=== PATIENT | female | born 1930 | race Caucasian/White ===

== ENCOUNTER 2016-05-02 09:20 | Emergency (ER) | payer OTHER ==
[2016-05-02 09:50] VITALS: BP 144/50
--- NOTE | 2016-05-02 09:56 | ED Physician Documentation ---
Upper Respiratory Symptoms - HISTORIAN Historian: patient - HPI Stated Complaint: headache Chief Complaint: Upper Respiratory Symptoms Onset: days ago (5) Associated Symptoms: earache, sinus pain, sinus drainage. denies: fever, chills Worsened by Deep Breath: No Further Comments: yes (85 yo female presents with sinus pressure/headache/ bilateral ear fullness. No nausea/vomiting. No visual disturbances. Was seen by PCP, was given Z-hilda which she says "helped some" but reports symptoms returned after completing) - ROS CONST/EYES: denies: weakness - PAST HX Lung Disease: none Allergies/Adverse Reactions: Allergies Allergy/AdvReac Type Severity Reaction Status Date / Time erythromycin base Allergy Verified 05/02/16 09:44 [Erythromycin Base] heparin Allergy Verified 05/02/16 09:44 Penicillins Allergy Verified 05/02/16 09:44 Sulfa (Sulfonamide Allergy Verified 05/02/16 09:44 Antibiotics) [Sulfa(Sulfonamide Antibiotics)] Home Medications: Ambulatory Orders Medication Instructions Recorded Aspirin [Nelida] 81 mg PO QD 05/20/12 Calcium Carbonate 650 mg PO DAILY 05/20/12 Carvedilol [Carvedilol] 25 mg PO DAILY 05/20/12 Levothyroxine Sodium [Levothroid] 75 mcg PO DAILY 05/20/12 Lisinopril [Lisinopril] 40 mg PO DAILY 05/20/12 Pravastatin Sodium [Pravachol] 80 mg PO DAILY 05/20/12 Ranitidine HCl 150 mg PO DAILY 05/20/12 amLODIPine BESYLATE [Amlodipine 5 mg PO DAILY 05/20/12 Besylate] Diphenoxylate HCl/Atropine 1 each PO QID PRN #15 tablet 08/24/12 [Lomotil] Clarithromycin [Biaxin] 500 mg PO BID #20 tablet 05/02/16 - SOCIAL HX Smoking History: non-smoker - FAMILY HX Family History: none - VITAL SIGNS Vital Signs: Vital Signs Temp Pulse Resp BP Pulse Ox 97.8 F 77 16 144/50 98 05/02/16 09:45 05/02/16 09:45 05/02/16 09:45 05/02/16 09:45 05/02/16 09:45 - REVIEWED ASSESSMENTS Nursing Assessment Reviewed: Yes Vitals Reviewed: Yes Upper Respiratory Symptoms - EXAM General Appearance: no acute distress EENT: eyes nml inspection, nml ENT inspection, lids & conjunct. nml, PERRL, pain over sinuses, frontal Neck: normal inspection Respiratory: no resp. distress, breath sounds nml, no pain on inspiration Abdomen: non-tender, no organomegaly Skin: color nml, no rash Extremities: non-tender Neuro/Psych: oriented x3 Discharge Clincal Impression: Acute sinusitis Qualifiers: Sinusitis location: frontal Recurrence: non-recurrent Qualified Code(s): J01.10 - Acute frontal sinusitis, unspecified Additional Instructions: Take Biaxin twice daily as prescribed Use over the counter cough/cold remedies Hydrate Follow up with PCP in 1 week if no better Home Medications: Ambulatory Orders Aspirin [Nelida] 81 mg PO QD 05/20/12 Calcium Carbonate 650 mg PO DAILY 05/20/12 Carvedilol [Carvedilol] 25 mg PO DAILY 05/20/12 Levothyroxine Sodium [Levothroid] 75 mcg PO DAILY 05/20/12 Lisinopril [Lisinopril] 40 mg PO DAILY 05/20/12 Pravastatin Sodium [Pravachol] 80 mg PO DAILY 05/20/12 Ranitidine HCl 150 mg PO DAILY 05/20/12 amLODIPine BESYLATE [Amlodipine Besylate] 5 mg PO DAILY 05/20/12 Diphenoxylate HCl/Atropine [Lomotil] 1 each PO QID PRN #15 tablet 08/24/12 Clarithromycin [Biaxin] 500 mg PO BID #20 tablet 05/02/16 Condition: Good Disposition: 01 HOME, SELF-CARE Decision to Admit: NO Decision Time: 09:57
== END 2016-05-02 10:08 | disposition home or self-care (01) ==
LOC: ED 09:20
DX: J01.10 Acute frontal sinusitis, unspecified (principal)
CPT/HCPCS: 99283

== ENCOUNTER 2016-05-03 10:33 | Outpatient (CLI) | payer OTHER ==
[2016-05-02 09:50] VITALS: BP 144/50
--- NOTE | 2016-05-03 12:59 | Diagnostic Imaging Report ---
[facility] [address] [facility].[address] [id number] Report Submission Date: May 03, 2016 12:57:08 PM BRIM PLATER Patient Study Name: BILL GONZALEZ Date: May 03, 2016 10:47:21 AM BRIM PLATER Modality Type: US Gender: F Description: DPLX SCN XTRCRAN ART CMP BRITT : 30 Institution: [facility] Physician VERO BLACK Ultrasound carotid Doppler HISTORY: Carotid stenosis, coronary artery disease, hypertension, hyperlipidemia FINDINGS: Spectral Doppler sonography of the carotid and vertebral arteries is performed. On the right there is a large amount of hyperechoic plaque in the carotid bulb and origin of the internal carotid artery. Antegrade right carotid and vertebral artery flow is observed. Doppler waveforms are normal in the right carotid and vertebral arteries. Spectral broadening is present in the proximal right external carotid artery. On the left there is minimal hyperechoic plaque in the common carotid artery and mild to moderate hyperechoic plaque in the carotid bulb and to a lesser extent the origin of the internal carotid artery. Antegrade left carotid and vertebral artery flow is observed with normal Doppler waveforms. Peak systolic velocities in the external carotid arteries are 153 centimeters/ second right and 158 left. Peak systolic velocities in the internal carotid arteries are 82 centimeters/second right and 91 left. Internal to common carotid artery ratios are 1.1 right and 1.4 left. IMPRESSION: Probably bilateral external carotid artery stenosis. Using NASCET criteria, there are patent internal carotid arteries without hemodynamically significant stenosis. Antegrade vertebral artery flow. Electronically signed on May 03, 2016 12:57:08 PM BRIM PLATER by: Vero GRIFFITH
== END 2016-05-03 10:34 ==
LOC: CARD 10:33
PROVIDERS: ATTEND Internal Medicine Cardiovascular Disease
DX: I25.10 Atherosclerotic heart disease of native coronary artery without angina pectoris (principal)
CPT/HCPCS: 93880; G0463

== ENCOUNTER 2016-09-25 09:58 | Emergency (ER) | payer OTHER ==
[2016-09-25 11:03] VITALS: BP 138/68
--- NOTE | 2016-09-25 11:03 | ED Physician Documentation ---
Lower Extremity Problem - HISTORIAN Historian: patient - HPI Stated Complaint: Left Hip Pain Chief Complaint: Lower Extremity Problem Additional Information: bilat hip pain and pelvis pain first rt hip w/ sciata now after some lifting lt hip pain w/rad to lt groion---no spec injuries Onset: days ago (int past few weeks) Timing: still present, worse since (few days ago after moving--walks w/ sig pain -some limping) Duration: intermittent episodes Severity: moderate Quality: pain, tenderness. denies: swelling, numbness Exacerbated By: walking, movement Relieved By: rest, positioning Associated Symptoms: denies: chest pain, shortness of breath, rapid heart rate - ROS CONST: no problems MS/SKIN/LYMPH: joint pain, leg pain, back pain. denies: ankle swelling CVS/RESP: denies: chest pain GI/: none NERUO/PSYCH: difficulty walking. 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 on synthroid) Other History: other (heart murmur-mild) Surgeries/Procedures: other (breast appy 2 stents) Allergies/Adverse Reactions: Allergies Allergy/AdvReac Type Severity Reaction Status Date / Time erythromycin base Allergy Verified 09/25/16 10:11 [Erythromycin Base] heparin Allergy Verified 09/25/16 10:11 Penicillins Allergy Verified 09/25/16 10:11 Sulfa (Sulfonamide Allergy Verified 09/25/16 10:11 Antibiotics) [Sulfa(Sulfonamide Antibiotics)] Home Medications: Ambulatory Orders Medication Instructions Recorded Aspirin [Nelida] 81 mg PO QD 05/20/12 Calcium Carbonate 650 mg PO DAILY 05/20/12 Carvedilol [Carvedilol] 25 mg PO DAILY 05/20/12 Levothyroxine Sodium [Levothroid] 75 mcg PO DAILY 05/20/12 Lisinopril [Lisinopril] 40 mg PO DAILY 05/20/12 Pravastatin Sodium [Pravachol] 80 mg PO DAILY 05/20/12 Ranitidine HCl 150 mg PO DAILY 05/20/12 amLODIPine BESYLATE [Amlodipine 5 mg PO DAILY 05/20/12 Besylate] - SOCIAL HX Smoking History: non-smoker Alcohol Use: none Drug Use: none - FAMILY HX Family History: no significant history - VITAL SIGNS Vital Signs: Vital Signs Temp Pulse Resp BP Pulse Ox 97 F L 68 18 153/56 98 09/25/16 09:58 09/25/16 09:58 09/25/16 09:58 09/25/16 09:58 09/25/16 09:58 - REVIEWED ASSESSMENTS Nursing Assessment Reviewed: Yes Vitals Reviewed: Yes ED Results Lab/Radiology - Radiology Radiology Impressions: sig djd no fx seen has good bony structure isaak for age-no lytic lesions seen. - Orders Orders: ED Orders Category Date Time Status BILAT HIPS 2V (W/PEL IF DONE) [RAD] Stat Exams 09/25/16 Ordered Lower Extremity Problem - EXAM General Appearance: moderate distress Neuro/Tendon: normal sensation, normal motor functions, responds to pain, other (palp tenderness lt hip and pelvic stress rt hip minimal) RESPIRATORY: no resp distress, chest non-tender, breath sounds normal CVS: reg rate & rhythm, heart sounds normal ( slight sys murmur) VASCULAR: no vascular compromise NEURO/PSYCH: oriented X3, motor nml, sensation nml, mood/affect nml SKIN: warm/dry, normal color. No: cyanosis, diaphoresis, jaundice BACK: CVA tenderness (R), CVA tenderness (L) (lumbar area) Discharge Clincal Impression: Sciatica associated with disorder of lumbar spine, DJD (degenerative joint disease) Referrals: Eduardo Mujica MD [Primary Care Provider] - 2 Days Home Medications: Ambulatory Orders Aspirin [Nelida] 81 mg PO QD 05/20/12 Calcium Carbonate 650 mg PO DAILY 05/20/12 Carvedilol [Carvedilol] 25 mg PO DAILY 05/20/12 Levothyroxine Sodium [Levothroid] 75 mcg PO DAILY 05/20/12 Lisinopril [Lisinopril] 40 mg PO DAILY 05/20/12 Pravastatin Sodium [Pravachol] 80 mg PO DAILY 05/20/12 Ranitidine HCl 150 mg PO DAILY 05/20/12 amLODIPine BESYLATE [Amlodipine Besylate] 5 mg PO DAILY 05/20/12 Comments: home Condition: Good Disposition: 01 HOME, SELF-CARE Decision to Admit: NO (n) Decision Time: 11:02
--- NOTE | 2016-09-25 13:12 | Diagnostic Imaging Report ---
RICKY UMANZOR~ [facility] [address] [facility] [address] [place] [address]. [id number] ~ ~ ~ ~ Report Submission Date: Sep 25, 2016 11:23:51 AM CDT Patient ~ Study Name: BILL GONZALEZ ~ Date: Sep 25, 2016 10:25:17 AM CDT ~ Modality Type: CR Gender: F ~ Description: PELVIS : 30 ~ Institution: [facility] Physician: RICKY UMANZOR ~ ~ ~ ~ Pelvis AP view with bilateral 2 view hip. History: Bilateral hip pain for 1 month after moving and picking up boxes Findings: The osseous structures are intact without acute fracture. The proximal femurs are intact. The femoral heads are in appropriate position with mild narrowing of the hip joint spaces. There is also mild degenerative in the lower lumbar spine noted. The sacroiliac joints are normal. Pelvic phleboliths are seen. Impression: 1. No acute osseous abnormality. 2. Bilateral hip joint space narrowing ~ Electronically signed on Sep 25, 2016 11:23:51 AM CDT by: Onofre Rosen The following text is a previous version of the current report for this study. Pelvis AP view with right hip. History: Bilateral hip pain for 1 month after moving and picking up boxes Findings: The osseous structures are intact without acute fracture. The proximal femurs are intact. The femoral heads are in appropriate position with mild narrowing of the hip joint spaces. There is also mild degenerative in the lower lumbar spine noted. The sacroiliac joints are normal. Pelvic phleboliths are seen. Impression: 1. No acute osseous abnormality. 2. Bilateral hip joint space narrowing Prior version electronically signed by Onofre Rosen on September 25, 2016 10:50:01 AM CDT [facility]
== END 2016-09-25 11:02 | disposition home or self-care (01) ==
LOC: ED 09:58
DX: M54.30 Sciatica, unspecified side (principal); M19.90 Unspecified osteoarthritis, unspecified site; M25.552 Pain in left hip
CPT/HCPCS: 73521; 99283

== ENCOUNTER 2016-09-26 22:34 | Emergency (ER) | payer OTHER ==
[2016-09-26] MEDS ORDERED: MECLIZINE HCL 25 MG TABLET PO ONE (22:52)
--- NOTE | 2016-09-26 23:05 | ED Physician Documentation ---
General Adult - HISTORIAN Historian: patient - HPI Stated Complaint: EARPRESSURE Chief Complaint: General Adult Onset: hours Further Comments: yes (85 year old female patient presents with complaints of "roaring" in ears and mild dizziness. States it started this afternoon. Patient states her sciatica resolved today.) - ROS CONST: no problems EYES/ENT: none CVS/RESP: none GI/: none MS/SKIN/LYMPH: none NEURO/PSYCH: denies: headache - PAST HX Past History: hypertension, other (HLD, Breast CA 1994) Surgeries/Procedures: cardiac stent, other (appendectomy) Allergies/Adverse Reactions: Allergies Allergy/AdvReac Type Severity Reaction Status Date / Time erythromycin base Allergy Verified 09/26/16 22:53 [Erythromycin Base] heparin Allergy Verified 09/26/16 22:53 Penicillins Allergy Verified 09/26/16 22:53 Sulfa (Sulfonamide Allergy Verified 09/26/16 22:53 Antibiotics) [Sulfa(Sulfonamide Antibiotics)] Home Medications: Ambulatory Orders Medication Instructions Recorded Aspirin [Nelida] 81 mg PO QD 05/20/12 Calcium Carbonate 650 mg PO DAILY 05/20/12 Carvedilol [Carvedilol] 25 mg PO DAILY 05/20/12 Levothyroxine Sodium [Levothroid] 75 mcg PO DAILY 05/20/12 Lisinopril [Lisinopril] 40 mg PO DAILY 05/20/12 Pravastatin Sodium [Pravachol] 80 mg PO DAILY 05/20/12 Ranitidine HCl 150 mg PO DAILY 05/20/12 amLODIPine BESYLATE [Amlodipine 5 mg PO DAILY 05/20/12 Besylate] - SOCIAL HX Smoking History: non-smoker - FAMILY HX Family History: No - VITAL SIGNS Vital Signs: Vital Signs Temp Pulse Resp BP Pulse Ox 97.6 F 75 20 144/58 100 09/26/16 22:45 09/26/16 22:45 09/26/16 22:45 09/26/16 22:45 09/26/16 22:45 - REVIEWED ASSESSMENTS Nursing Assessment Reviewed: Yes Vitals Reviewed: Yes ED Results Lab/Radiology - Orders Orders: ED Orders Category Date Time Status Meclizine HCl [Antivert] Med 09/26/16 22:52 Once 25 mg PO NOW ONE General Adult Physical Exam - PHYSICAL EXAM GENERAL APPEARANCE: anxious EENT: eye inspection normal, ENT inspection normal, pharynx normal, no signs of dehydration, FAYE, no nystagmus, other (right TM with serous effusion) RESPIRATORY: no resp distress, chest non-tender, breath sounds normal CVS: reg rate & rhythm, equal pulses, no murmur, no gallop, PMI nml, no JVD, no friction rub, murmur (mitral regurg 5/6) SKIN: normal color, warm/dry, NR, INT, PAL, DR NEURO: oriented X3, CN's nml as tested, motor nml, sensation nml, mood/affect nml Discharge Clincal Impression: Light-headed feeling, ears roaring Referrals: Eduardo Mujica MD [Primary Care Provider] - 2 Days Additional Instructions: Try an over the counter decongestant tomorrow if your symptoms have not resolved. Home Medications: Ambulatory Orders Aspirin [Nelida] 81 mg PO QD 05/20/12 Calcium Carbonate 650 mg PO DAILY 05/20/12 Carvedilol [Carvedilol] 25 mg PO DAILY 05/20/12 Levothyroxine Sodium [Levothroid] 75 mcg PO DAILY 05/20/12 Lisinopril [Lisinopril] 40 mg PO DAILY 05/20/12 Pravastatin Sodium [Pravachol] 80 mg PO DAILY 05/20/12 Ranitidine HCl 150 mg PO DAILY 05/20/12 amLODIPine BESYLATE [Amlodipine Besylate] 5 mg PO DAILY 05/20/12 Condition: Good Disposition: 01 HOME, SELF-CARE Decision to Admit: NO Decision Time: 23:04
[2016-09-26 23:15] VITALS: BP 138/68
== END 2016-09-26 23:15 | disposition home or self-care (01) ==
LOC: ED 22:34
DX: R42 Dizziness and giddiness (principal)
CPT/HCPCS: 99282; 99283

== ENCOUNTER 2017-04-08 09:18 | Emergency (ER) | payer OTHER ==
--- NOTE | 2017-04-08 09:30 | ED Physician Documentation ---
General Adult - HISTORIAN Historian: patient - HPI Chief Complaint: General Adult Additional Information: 10 day history of cough that has been productive of some yellowish/green phegm. Has developed some sinus congesion and pressure. Having some bloody nasal drainage. No wheezing noted. No fever or chills noted. Onset: days ago (10 days ), other Timing: still present, worse Severity: moderate Further Comments: no - ROS CONST: no problems. denies: fever, chills EYES/ENT: none CVS/RESP: cough. denies: chest pain GI/: denies: abdominal pain, problems urinating, vomiting, nausea, diarrhea MS/SKIN/LYMPH: denies: calf pain NEURO/PSYCH: denies: headache - PAST HX Past History: hypertension Surgeries/Procedures: other (breast ancer lumpectomy) Allergies/Adverse Reactions: Allergies Allergy/AdvReac Type Severity Reaction Status Date / Time erythromycin base Allergy Verified 04/08/17 09:28 [Erythromycin Base] heparin Allergy Verified 04/08/17 09:28 Penicillins Allergy Verified 04/08/17 09:28 Sulfa (Sulfonamide Allergy Verified 04/08/17 09:28 Antibiotics) [Sulfa(Sulfonamide Antibiotics)] Home Medications: Ambulatory Orders Medication Instructions Recorded Aspirin [Nelida] 81 mg PO QD 05/20/12 Calcium Carbonate 650 mg PO DAILY 05/20/12 Carvedilol [Carvedilol] 25 mg PO DAILY 05/20/12 Levothyroxine Sodium [Levothroid] 75 mcg PO DAILY 05/20/12 Lisinopril [Lisinopril] 40 mg PO DAILY 05/20/12 Pravastatin Sodium [Pravachol] 80 mg PO DAILY 05/20/12 Ranitidine HCl 150 mg PO DAILY 05/20/12 amLODIPine BESYLATE [Amlodipine 5 mg PO DAILY 05/20/12 Besylate] Levofloxacin [Levaquin] 500 mg PO D #7 tablet 04/08/17 - SOCIAL HX Smoking History: non-smoker Alcohol Use: none Drug Use: none - FAMILY HX Family History: Yes - VITAL SIGNS Vital Signs: Vital Signs Temp Pulse Resp BP Pulse Ox 138/68 09/26/16 23:15 General Adult Physical Exam - PHYSICAL EXAM GENERAL APPEARANCE: no distress EENT: eye inspection normal, pharyngeal erythema (mild) NECK: normal inspection, supple RESPIRATORY: no resp distress, rhonchi (RLL) CVS: reg rate & rhythm, heart sounds normal, murmur (2/6 systolic) ABDOMEN: soft SKIN: warm/dry, normal color NEURO: mood/affect nml, cognition normal Discharge Clincal Impression: Bronchitis Sinusitis Qualifiers: Sinusitis location: frontal Chronicity: acute Recurrence: non-recurrent Qualified Code(s): J01.10 - Acute frontal sinusitis, unspecified Prescriptions: Levofloxacin [Levaquin] 500 mg PO D #7 tablet Referrals: Adonay Kc MD [Primary Care Provider] - 2 Days Additional Instructions: Drink a lot of fluids. Take Levaquin as directed. Watch for side effects as indicated. Take Mucinex 600mg twice a day as needed for congestion. If no improvement then follow-up with your primary care provider or return to the ED. Condition: Stable Disposition: 01 HOME, SELF-CARE Decision to Admit: NO Date of Decison to Admit: 04/08/17 Decision Time: 09:42
[2017-04-08 09:55] VITALS: BP 115/58
== END 2017-04-08 09:54 | disposition home or self-care (01) ==
LOC: ED 09:18
DX: J40 Bronchitis, not specified as acute or chronic (principal); J01.10 Acute frontal sinusitis, unspecified
CPT/HCPCS: 99283

== ENCOUNTER 2017-04-13 18:54 | Emergency (ER) | payer OTHER ==
--- NOTE | 2017-04-13 19:17 | ED Physician Documentation ---
Headache - HISTORIAN Historian: patient - HPI Chief Complaint: Headache Additional Information: Patient has been having some chest congestion. It seems to be doing better. But when she coughs she is getting a headache to the frontal area, pain lasts for about [address] then [address]. Was prescribed some Levaquin but she has refused to take it. Has been having some green bloody nasal drainage from the noes. Some sinus pressure noted. Severity: mild Exacerbated By: other (cough). denies: light, noise, movement Further Comments: no - ROS NEURO/PSYCH: denies: confusion, anxiety EYES/ENT: sinus pain, drainage. denies: sore throat, difficulty swallowing CVS/RESP: cough. denies: chest pain, shortness of breath GI/: denies: abdominal pain - PAST HX Medical History: hypertension Surgical History: other (lumpectomy) Allergies/Adverse Reactions: Allergies Allergy/AdvReac Type Severity Reaction Status Date / Time erythromycin base Allergy Verified 04/08/17 09:28 [Erythromycin Base] heparin Allergy Verified 04/08/17 09:28 Penicillins Allergy Verified 04/08/17 09:28 Sulfa (Sulfonamide Allergy Verified 04/08/17 09:28 Antibiotics) [Sulfa(Sulfonamide Antibiotics)] Home Medications: Ambulatory Orders Medication Instructions Recorded Aspirin [Nelida] 81 mg PO QD 05/20/12 Calcium Carbonate 650 mg PO DAILY 05/20/12 Carvedilol [Carvedilol] 25 mg PO DAILY 05/20/12 Levothyroxine Sodium [Levothroid] 75 mcg PO DAILY 05/20/12 Lisinopril [Lisinopril] 40 mg PO DAILY 05/20/12 Pravastatin Sodium [Pravachol] 80 mg PO DAILY 05/20/12 Ranitidine HCl 150 mg PO DAILY 05/20/12 amLODIPine BESYLATE [Amlodipine 5 mg PO DAILY 05/20/12 Besylate] Levofloxacin [Levaquin] 500 mg PO D #7 tablet 04/08/17 - SOCIAL HX Smoking History: non-smoker Alcohol Use: none Drug Use: none - Family HX Family History: none - VITAL SIGNS Vital Signs: Vital Signs Temp Pulse Resp BP Pulse Ox 115/58 04/08/17 09:54 - REVIEWED ASSESSMENTS Nursing Assessment Reviewed: Yes Vitals Reviewed: Yes Headache Physical Exam - EXAM General Appearance: no acute distress, alert EENT: no facial swelling, eyes nml inspection, PERRL, pain over sinuses (left frontal) Neck: normal inspection, supple Respiratory: no resp distress, chest non-tender, breath sounds normal. No: wheezes, rales, rhonchi CVS: reg. rate & rhythm, heart sounds nml. No: murmur Abdomen: non-tender, no organomegaly, nml bowel sounds Skin: color nml, no rash Extremitites: non-tender - NEURO/PSYCH Higher Functions: alert, oriented x3, nml speech Cranial: nml as tested, no evidence of acute CVA Cerebellar: nml as tested Sensorimotor: motor nml, sensation nml. denies: weakness, aphasia, receptive Discharge Clincal Impression: Bronchitis, Sinus pain Referrals: Adonay Kc MD [Primary Care Provider] - 2 Days Additional Instructions: Start taking some Tylenol three times a day. Use some saline nasal rinses. Continue with mucinex. Condition: Stable Disposition: 01 HOME, SELF-CARE Decision to Admit: NO Date of Decison to Admit: 04/13/17 Decision Time: 19:32
[2017-04-13 19:19] VITALS: BP 132/54
== END 2017-04-13 19:41 | disposition home or self-care (01) ==
LOC: ED 18:54
DX: J32.9 Chronic sinusitis, unspecified (principal); J40 Bronchitis, not specified as acute or chronic
CPT/HCPCS: 99282; 99283

== ENCOUNTER 2017-05-05 08:08 | Emergency (ER) | payer OTHER ==
--- NOTE | 2017-05-05 08:15 | ED Physician Documentation ---
General Adult - HISTORIAN Historian: patient - HPI Stated Complaint: influenza Chief Complaint: Upper Respiratory Symptoms Onset: days ago (4) Timing: still present Severity: mild Further Comments: yes (States on Monday she was told she had Influenza A at her PCP office. She states she continues to feel "so bad" meaning fatigue, cough , and nausea . She states she is drinking normally.) Last known Well Code/Unknown Code: Unknown - ROS CONST: fever (resolved now ), recent illness, weakness EYES/ENT: nasal drainage, nasal congestion CVS/RESP: cough GI/: nausea MS/SKIN/LYMPH: none NEURO/PSYCH: headache - PAST HX Past History: other (HTN, hypothyroidism, hyperlipidemia GERD ) Surgeries/Procedures: other Immunizations: UTD Allergies/Adverse Reactions: Allergies Allergy/AdvReac Type Severity Reaction Status Date / Time erythromycin base Allergy Verified 05/05/17 08:34 [Erythromycin Base] heparin Allergy Verified 05/05/17 08:34 Penicillins Allergy Verified 05/05/17 08:34 Sulfa (Sulfonamide Allergy Verified 05/05/17 08:34 Antibiotics) [Sulfa(Sulfonamide Antibiotics)] Home Medications: Ambulatory Orders Medication Instructions Recorded Aspirin [Nelida] 81 mg PO QD 05/20/12 Calcium Carbonate 650 mg PO DAILY 05/20/12 Carvedilol [Carvedilol] 25 mg PO DAILY 05/20/12 Levothyroxine Sodium [Levothroid] 75 mcg PO DAILY 05/20/12 Lisinopril [Lisinopril] 40 mg PO DAILY 05/20/12 Pravastatin Sodium [Pravachol] 80 mg PO DAILY 05/20/12 Ranitidine HCl 150 mg PO DAILY 05/20/12 amLODIPine BESYLATE [Amlodipine 5 mg PO DAILY 05/20/12 Besylate] Levofloxacin [Levaquin] 500 mg PO D #7 tablet 05/05/17 Ondansetron HCl Rapdis [Zofran Odt] 4 mg PO Q8 PRN #20 tab 05/05/17 Oseltamivir Phosphate [Tamiflu] 75 mg PO DAILY 05/05/17 - SOCIAL HX Smoking History: non-smoker Alcohol Use: none Drug Use: none - FAMILY HX Family History: No - VITAL SIGNS Vital Signs: Vital Signs Temp Pulse Resp BP Pulse Ox 151/62 04/30/17 15:26 - REVIEWED ASSESSMENTS Nursing Assessment Reviewed: Yes Vitals Reviewed: Yes Progress - Progress Progress: 1010: resting quietly in room with spouse DG ED Results Lab/Radiology - Radiology Radiology Impressions: Examination: PA and lateral chest. History: Evaluate lung paul. Comparison exam: None available for direct review. Findings: PA lateral chest demonstrate a normal cardiac and mediastinal silhouette. Tortuous aorta with vascular calcifications involving the aortic arch. Elevation of the right hemidiaphragm. Right hilar fullness and apical parenchymal infiltrates. No left hemithorax infiltrate. No blunting of the costophrenic margins. Osseous structures are appropriate for age. Impression: Right hilar and apical infiltrates. No effusion Electronically signed on May 05, 2017 9:18:46 AM COMMERCIAL [employer]ING TE[employer]ER by: Devonte Strong General Adult Physical Exam - PHYSICAL EXAM GENERAL APPEARANCE: no distress EENT: eye inspection normal RESPIRATORY: no resp distress, chest non-tender, breath sounds normal CVS: reg rate & rhythm, heart sounds normal, equal pulses ABDOMEN: soft, normal bowel sounds BACK: normal inspection SKIN: warm/dry, normal color EXTREMITIES: non-tender NEURO: oriented X3, CN's nml as tested Discharge Clincal Impression: Influenza Pneumonia Qualifiers: Pneumonia type: due to unspecified organism Laterality: unspecified laterality Lung location: unspecified part of lung Qualified Code(s): J18.9 - Pneumonia, unspecified organism Prescriptions: Levofloxacin [Levaquin] 500 mg PO D #7 tablet Ondansetron HCl Rapdis [Zofran Odt] 4 mg PO Q8 PRN #20 tab PRN Reason: Nausea / Vomiting Referrals: Adonay Kc MD [Primary Care Provider] - 2 Days Comments: Increase fluids Rest OTC meds for symptom relief Zofran 4 mg every 8 hours as needed for nausea Levaquin 500 mg daily x7 Continue tamiflu Follow up with PCP Monday or Monday Return to ER for any concerning symptoms Condition: Stable Disposition: 01 HOME, SELF-CARE Decision to Admit: NO Date of Decison to Admit: 05/05/17 Decision Time: 10:25
[2017-05-05 08:51] LABS: MEAN CORPUSCULAR VOLUME 87.8 fl (80.0-100.0)
[2017-05-05 09:09] LABS: MONOCYTES % 11 % (0-11); SEGMENTED NEUTROPHILS % 60 % (39-79)
[2017-05-05 09:10] LABS: eGFR (African) > 60; eGFR (Non-African) > 60
[2017-05-05] MEDS ORDERED: 0.9 % SODIUM CHLORIDE 1,000 ML IV ONE (09:31)
[2017-05-05 10:34] VITALS: BP 115/58
--- NOTE | 2017-05-05 12:41 | Diagnostic Imaging Report ---
PRASAD MOORE [facility] [place] [facility] [id number] [facility] [address] [place], [place]. [address] Report Submission Date: May 05, 2017 9:18:46 AM HEALTH CENTER ASSOCIATE Patient Study Name: BILL GONZALEZ Date: May 05, 2017 8:51:05 AM HEALTH CENTER ASSOCIATE Modality Type: CR Gender: F Description: CHEST : 30 Institution: [facility] Physician: PRASAD MOORE Examination: PA and lateral chest. History: Evaluate lung paul. Comparison exam: None available for direct review. Findings: PA lateral chest demonstrate a normal cardiac and mediastinal silhouette. Tortuous aorta with vascular calcifications involving the aortic arch. Elevation of the right hemidiaphragm. Right hilar fullness and apical parenchymal infiltrates. No left hemithorax infiltrate. No blunting of the costophrenic margins. Osseous structures are appropriate for age. Impression: Right hilar and apical infiltrates. No effusion Electronically signed on May 05, 2017 9:18:46 AM HEALTH CENTER ASSOCIATE by: Devonte GRIFFITH
== END 2017-05-05 10:32 | disposition home or self-care (01) ==
LOC: ED 08:08
DX: J09.X1 Influenza due to identified novel influenza A virus with pneumonia (principal)
CPT/HCPCS: 36415; 71020; 80053; 85025; 96365; 99283; J7030; S1016

== ENCOUNTER 2017-05-26 11:43 | Inpatient (IN) | payer OTHER ==
--- NOTE | 2017-05-26 12:56 | History and Physical Report ---
History of Present Illnes - History of Present Illness Reason for Visit: Weakness History of Present Illness: Patient here for SNF after being hospitalized at [facility] for pneumonia. She began her illness with influenza in 04/02 and never really got better. She was treated with zithromax and rocephin at [facility] and transferred to [facility]. She has completed her antibiotics. She developed hypoxic respiratory failure most likely due to fluid overload and pulmonary edema most likely due to fluid overload with her illness. CT of chest ruled out PE. She was on lovenox during her stay. Due to swallowing difficulty, she had an EGD - apparently had polyps removed, stricture stretched and diagnosed with esophageal candidiasis. She is finishing diflucan now. She was placed on PPI and H2 vinny. Had been on marinnol and remeron to stimulate appetite. Feels that is better. Had some hyponatremia thought to be due to hypovolemia. Today it was 136. Echo done there showed EF 60% with some diastolic dysfunction. Aortic valve looked fine ( h/o "stenosis"). Feels weak but feeling better. Normally is "healthy" and lives at home with . A friend - Laurie - helps them a lot. - Past Medical History Cardiac: CAD, HTN, [place] (NSTEMI 2008), Hyperlipidemia (Intolerant of statins), Aortic stenosis (Echo 05/03 Dr. Khoury - 55%) Heme/Onc: Cancer (Breast) Psych: Depression Musculoskeletal: Other (DJD) - Past Surgical History Past Surgical History: Other (PCI in LAD and L Cx 2008), Other (R breast lumpectomy) - Past Family History Mother Family History: (97) Father Family History: (91) - Past Social History Smoke: No Alcohol: None Drugs: None Lives: Alone - Health Maintenance Health Maintenance: Influenza Vaccine, Pneumococcal Vaccine, Mammogram Influenza Vaccine: Current for this Influenza Season Pneumonia Vaccine: Yes Resuscitation Status: Resusciation Status Resuscitation Status Full Code Review of Systems - Review of Systems Constitutional: Weakness. negative: Fever Eyes: negative: pain ENT: negative: Ear Pain Respiratory: negative: Cough, Shortness of Breath Cardiovascular: negative: Chest Pain Gastrointestinal: negative: Nausea Genitourinary: negative: Dysuria Musculoskeletal: negative: Neck Pain Skin: negative: Rash Neurological: Weakness - Medications/Allergies Allergies/Adverse Reactions: Allergies Allergy/AdvReac Type Severity Reaction Status Date / Time erythromycin base Allergy Verified 05/05/17 08:34 [Erythromycin Base] heparin Allergy Verified 05/05/17 08:34 Penicillins Allergy Verified 05/05/17 08:34 Sulfa (Sulfonamide Allergy Verified 05/05/17 08:34 Antibiotics) [Sulfa(Sulfonamide Antibiotics)] Home Medications: Home Medications Benzonatate [Tessalon] 100 mg PO TID 05/26/17 Cetirizine HCl [Zyrtec] 10 mg PO DAILY 05/26/17 Cholecalciferol [Vitamin D-3] 1,000 units PO DAILY 05/26/17 Fluconazole [Diflucan] 100 mg PO [id number] 05/26/17 Furosemide [Lasix] 20 mg PO DAILY 05/26/17 Guaifenesin [Guaifenesin ER] 600 mg PO BID 05/26/17 Ipratropium/Albuterol Sulfate [Duoneb] 3 ml NEB Q6 05/26/17 Mirtazapine 7.5 mg PO HS 05/26/17 Pantoprazole Sodium [Protonix] 40 mg PO 0700 05/26/17 Polyethylene Glycol 3350 [Miralax] 17 gm PO 1100 PRN 05/26/17 Potassium Chloride [Klor-Con M20] 20 meq PO DAILY 05/26/17 Sennosides [Senna] 8.6 mg PO DAILY 05/26/17 Exam - Exam General: Alert, Oriented to Person, Oriented to Place, Oriented to Time, Cooperative, No acute distress HEENT: Atraumatic, PERRLA, EOMI, Mouth Mucous membr. moist/[place] Neck: Normal Range of Motion Lungs: Clear to auscultation, Normal air movement, Speaks full Sentences Cardiovascular: Regular rate Abdomen: Normal bowel sounds, Soft, No tenderness Integumentary: Normal Extremities: No edema Neurological: Normal gait, Normal speech, Strength Equal Bilat, Normal tone, Generalized Weakness Psych/Mental Status: Mental status NL, Mood NL, Appropriate Affect, Intact Judgment Assessment/Plan - Assessment/Plan (1) Weakness Status: Acute Current Visit: Yes Plan: Will admit to SNF for PT/OT/ST (swallowing problems). Her appetite is better. I will stop marinnol but continue remeron at this time. Hope to be able to discontinue before discharge. (2) Esophageal candidiasis Status: Acute Current Visit: Yes Plan: Will finish diflucan in 3 days. Currently new meds are protonix and zantac. Explained we will keep her on those a few days and let her PCP (DR. Kc) discontinue when ready. (3) Diastolic dysfunction Status: Acute Current Visit: Yes Plan: Sent on lasix and potassium for 7 days. Will stop at that time. Watch closely. (4) H/O: pneumonia Status: Acute Current Visit: Yes Plan: Improved. Currently on O2 2L and duo nebs. Hope to wean those off by discharge. (5) Hyponatremia Status: Acute Current Visit: Yes Plan: Recheck next week. VTE Assessment - RISK FACTOR SCORE VTE RISK FACTOR SCORES: AGE OVER 60 YEARS - RISK VTE LOW RISK: SCORE OF 1 OR LESS (RISK PROXIMAL DVT 0.4%) NO PROPHYLAXIS NEEDED
[2017-05-26] MEDS ORDERED: ENOXAPARIN SODIUM 30 MG/0.3 ML DISP.SYRIN SQ SCH (13:00)
[2017-05-26 16:09] VITALS: BMI 23.4
[2017-05-26] MEDS ORDERED: BENZONATATE 100 MG CAPSULE PO PRN (16:36)
[2017-05-26] MEDS ORDERED: ASPIRIN EC 81 MG TABLET.DR ONE (18:05)
[2017-05-26] MEDS ORDERED: CARVEDILOL 12.5 MG TABLET PO ONE (18:06)
[2017-05-26] MEDS: MIRTAZAPINE 15 MG TABLET PO SCH ×2 (18:07→18:08)
[2017-05-26] MEDS: ASPIRIN 81 MG CHEW TAB PO SCH (18:07)
[2017-05-26] MEDS: IPRATROPIUM/ALBUTEROL SULFATE 3 ML AMPUL.NEB NEB SCH (18:38)
[2017-05-26] MEDS: CARVEDILOL 25 MG TABLET PO SCH (20:07)
[2017-05-26] MEDS ORDERED: MIRTAZAPINE 7.5 MG PO SCH (21:00)
[2017-05-27] MEDS: IPRATROPIUM/ALBUTEROL SULFATE 3 ML AMPUL.NEB NEB SCH ×4 (02:40→17:23)
[2017-05-27] MEDS ORDERED: CARVEDILOL 12.5 MG TABLET PO ONE ×2 (03:18→12:53)
[2017-05-27] MEDS ORDERED: CALCIUM/VIT D 500MG/200IU TABLET ONE ×2 (03:19→08:35)
[2017-05-27] MEDS: POLYETHYLENE GLYCOL 3350 17 GM POWD.PACK PO PRN (06:03)
[2017-05-27] MEDS: PANTOPRAZOLE SODIUM 40 MG TABLET PO SCH (06:04)
[2017-05-27] MEDS: POTASSIUM CHLORIDE 20 MEQ TABLET.ER PO SCH (08:52)
[2017-05-27] MEDS: amLODIPine BESYLATE 5 MG TABLET PO SCH (08:54)
[2017-05-27] MEDS: FUROSEMIDE 20 MG TABLET PO SCH (08:55)
[2017-05-27] MEDS: CALCIUM CARB 600MG/VIT D-3 400 1 EACH TABLET PO SCH (08:56)
[2017-05-27] MEDS: CARVEDILOL 25 MG TABLET PO SCH ×2 (08:56→20:45)
[2017-05-27] MEDS: SENNOSIDES 8.6 MG TABLET PO SCH (08:56)
[2017-05-27] MEDS: FLUCONAZOLE 150 MG TABLET PO SCH (08:56)
[2017-05-27] MEDS: LISINOPRIL 20 MG TABLET PO SCH (08:56)
[2017-05-27] MEDS ORDERED: LISINOPRIL 20 MG PO SCH (09:00)
[2017-05-27] MEDS ORDERED: CALCIUM CARBONATE 1250 MG PO SCH (09:00)
[2017-05-27] MEDS ORDERED: ASPIRIN EC 81 MG TABLET.DR ONE (12:54)
[2017-05-27] MEDS: ASPIRIN 81 MG CHEW TAB PO SCH (17:24)
[2017-05-27] MEDS: MIRTAZAPINE 15 MG TABLET PO SCH (20:43)
[2017-05-28] MEDS: IPRATROPIUM/ALBUTEROL SULFATE 3 ML AMPUL.NEB NEB SCH ×4 (00:18→17:28)
[2017-05-28] MEDS ORDERED: CARVEDILOL 12.5 MG TABLET PO ONE ×3 (02:10→21:25)
[2017-05-28] MEDS ORDERED: CALCIUM/VIT D 500MG/200IU TABLET ONE (02:12)
[2017-05-28] MEDS: PANTOPRAZOLE SODIUM 40 MG TABLET PO SCH (05:47)
[2017-05-28] MEDS: CARVEDILOL 25 MG TABLET PO SCH ×2 (08:53→20:58)
[2017-05-28] MEDS: CALCIUM CARB 600MG/VIT D-3 400 1 EACH TABLET PO SCH (08:53)
[2017-05-28] MEDS: FLUCONAZOLE 150 MG TABLET PO SCH (08:53)
[2017-05-28] MEDS: FUROSEMIDE 20 MG TABLET PO SCH (08:54)
[2017-05-28] MEDS: POTASSIUM CHLORIDE 20 MEQ TABLET.ER PO SCH (08:54)
[2017-05-28] MEDS: amLODIPine BESYLATE 5 MG TABLET PO SCH (08:56)
[2017-05-28] MEDS: SENNOSIDES 8.6 MG TABLET PO SCH (08:58)
[2017-05-28] MEDS: LISINOPRIL 20 MG TABLET PO SCH (08:58)
[2017-05-28] MEDS ORDERED: ASPIRIN EC 81 MG TABLET.DR ONE (13:07)
[2017-05-28] MEDS: ASPIRIN 81 MG CHEW TAB PO SCH (17:28)
[2017-05-28] MEDS: MIRTAZAPINE 15 MG TABLET PO SCH (20:57)
[2017-05-28] MEDS ORDERED: SENNOSIDES/DOCUSATE SODIUM 1 EACH TABLET PO ONE (21:26)
[2017-05-29] MEDS: IPRATROPIUM/ALBUTEROL SULFATE 3 ML AMPUL.NEB NEB SCH ×4 (00:04→17:14)
[2017-05-29] MEDS: PANTOPRAZOLE SODIUM 40 MG TABLET PO SCH (06:13)
[2017-05-29] MEDS: FLUCONAZOLE 150 MG TABLET PO SCH (08:30)
[2017-05-29] MEDS: CARVEDILOL 12.5 MG TABLET PO SCH ×2 (08:30→20:27)
[2017-05-29] MEDS: POTASSIUM CHLORIDE 20 MEQ TABLET.ER PO SCH (08:30)
[2017-05-29] MEDS: amLODIPine BESYLATE 5 MG TABLET PO SCH (08:31)
[2017-05-29] MEDS: FUROSEMIDE 20 MG TABLET PO SCH (08:31)
[2017-05-29] MEDS: LISINOPRIL 20 MG TABLET PO SCH (08:33)
[2017-05-29] MEDS: SENNOSIDES 8.6 MG TABLET PO SCH (08:34)
[2017-05-29 08:42] LABS: eGFR (African) > 60; eGFR (Non-African) > 60
[2017-05-29] MEDS ORDERED: CALCIUM CARB 500 MG TAB.CHEW ONE (08:46)
[2017-05-29] MEDS ORDERED: CALCIUM/VIT D 500MG/200IU TABLET ONE (08:48)
[2017-05-29] MEDS: CALCIUM CARB 600MG/VIT D-3 400 1 EACH TABLET PO SCH (08:56)
[2017-05-29 09:34] LABS: BASOPHILS % 0.4 (0.0-1.5); EOSINOPHILS % 1.2 % (0.0-6.8); MEAN CORPUSCULAR HEMOGLOBIN 30.4 pg (28.0-34.0); MEAN CORPUSCULAR VOLUME 97.9 fl (80.0-100.0); MONOCYTES % 6.1 % (0.0-11.0); NEUTROPHILS # 3.5 # k/uL (1.4-7.7)
[2017-05-29] MEDS: ASPIRIN 81 MG CHEW TAB PO SCH (16:35)
[2017-05-29] MEDS: MIRTAZAPINE 15 MG TABLET PO SCH (20:27)
[2017-05-30] MEDS: IPRATROPIUM/ALBUTEROL SULFATE 3 ML AMPUL.NEB NEB SCH ×4 (02:42→17:00)
[2017-05-30] MEDS: PANTOPRAZOLE SODIUM 40 MG TABLET PO SCH (06:15)
[2017-05-30] MEDS: POTASSIUM CHLORIDE 20 MEQ TABLET.ER PO SCH (08:58)
[2017-05-30] MEDS: amLODIPine BESYLATE 5 MG TABLET PO SCH (08:58)
[2017-05-30] MEDS: CARVEDILOL 12.5 MG TABLET PO SCH ×2 (08:58→20:16)
[2017-05-30] MEDS: FUROSEMIDE 20 MG TABLET PO SCH (08:59)
[2017-05-30] MEDS: CALCIUM CARB 600MG/VIT D-3 400 1 EACH TABLET PO SCH (08:59)
[2017-05-30] MEDS: SENNOSIDES 8.6 MG TABLET PO SCH (08:59)
[2017-05-30] MEDS: LISINOPRIL 20 MG TABLET PO SCH (08:59)
[2017-05-30] MEDS ORDERED: CALCIUM/VIT D 500MG/200IU TABLET ONE (09:04)
[2017-05-30] MEDS ORDERED: FLUCONAZOLE 100 MG PO SCH (12:00)
[2017-05-30] MEDS: CHOLECALCIFEROL (VIT D3) 1,000 UNIT TABLET PO SCH ×3 (16:38→19:18)
[2017-05-30] MEDS: ASPIRIN 81 MG CHEW TAB PO SCH (16:38)
[2017-05-30] MEDS: MIRTAZAPINE 15 MG TABLET PO SCH (20:14)
[2017-05-31] MEDS: IPRATROPIUM/ALBUTEROL SULFATE 3 ML AMPUL.NEB NEB SCH ×3 (00:02→13:23)
[2017-05-31] MEDS: PANTOPRAZOLE SODIUM 40 MG TABLET PO SCH (05:52)
[2017-05-31] MEDS: CHOLECALCIFEROL (VIT D3) 1,000 UNIT TABLET PO SCH (08:45)
[2017-05-31] MEDS: POTASSIUM CHLORIDE 20 MEQ TABLET.ER PO SCH (08:46)
[2017-05-31] MEDS: CARVEDILOL 12.5 MG TABLET PO SCH ×2 (08:46→19:37)
[2017-05-31] MEDS: amLODIPine BESYLATE 5 MG TABLET PO SCH (08:48)
[2017-05-31] MEDS: LISINOPRIL 20 MG TABLET PO SCH (08:49)
[2017-05-31] MEDS: FUROSEMIDE 20 MG TABLET PO SCH (08:50)
[2017-05-31] MEDS: SENNOSIDES 8.6 MG TABLET PO SCH (08:51)
[2017-05-31] MEDS ORDERED: CALCIUM/VIT D 500MG/200IU TABLET ONE (08:56)
[2017-05-31] MEDS: CALCIUM CARB 600MG/VIT D-3 400 1 EACH TABLET PO SCH (08:59)
[2017-05-31] MEDS ORDERED: IPRATROPIUM/ALBUTEROL SULFATE 3 ML AMPUL.NEB NEB PRN (16:23)
--- NOTE | 2017-05-31 16:25 | Inpatient Progress Note ---
Subjective - Required Recertification Statement I anticipate X number of days because-include discharge plan: 10 - Review of Systems Subjective: Doing better. Breathing improved. Appetite good. Objective - Exam Vitals and I&O: Vital Signs Temp 98.9 F 05/31/17 09:00 Pulse 95 H 05/31/17 09:00 Resp 18 05/31/17 09:00 BP 120/54 05/31/17 09:00 Pulse Ox 95 05/31/17 09:00 Intake & Output 05/30/17 05/31/17 05/31/17 23:59 11:59 23:59 Intake Total 480 840 480 Balance 480 840 480 Weight 52.17 kg Intake: Oral 480 840 480 Other: Voiding Method Toilet Toilet # Voids 2 # Bowel Movements 1 General: Alert, Oriented to Person, Oriented to Place, Oriented to Time, Cooperative, No acute distress Lungs: Clear to auscultation, Normal air movement, Speaks full Sentences Cardiovascular: Regular rate - Results Results: Laboratory Results WBC 5.00 K/ul (4.00-12.00) 05/29/17 09:30 RBC 3.30 M/ul (3.90-5.20) L 05/29/17 09:30 Hgb 10.0 g/dL (12.0-16.0) L 05/29/17 09:30 Hct 32.3 % (34.5-46.5) L 05/29/17 09:30 MCV 97.9 fl (80.0-100.0) 05/29/17 09:30 MCH 30.4 pg (28.0-34.0) 05/29/17 09:30 MCHC 31.1 g/dL (30.0-36.0) 05/29/17 09:30 RDW 14.2 % (11.3-14.3) 05/29/17 09:30 Plt Count 245 K/mm3 (130-400) 05/29/17 09:30 Neut % (Auto) 70.8 % (39.0-79.0) 05/29/17 09:30 Lymph % (Auto) 20.4 % (16.0-50.0) 05/29/17 09:30 [place] % (Auto) 6.1 % (0.0-11.0) 05/29/17 09:30 Eos % (Auto) 1.2 % (0.0-6.8) 05/29/17 09:30 Baso % (Auto) 0.4 (0.0-1.5) 05/29/17 09:30 Neut # (Auto) 3.5 # k/uL (1.4-7.7) 05/29/17 09:30 Lymph # (Auto) 1.0 # k/uL (0.6-4.0) 05/29/17 09:30 [place] # (Auto) 0.3 # k/uL (0.0-0.9) 05/29/17 09:30 Eos # (Auto) 0.1 # k/uL (0.0-0.6) 05/29/17 09:30 Baso # (Auto) 0.0 # k/uL (0.0-0.5) 05/29/17 09:30 Reactive Lymphs % 1.1 % (0.0-5.0) 05/29/17 09:30 Reactive Lymphs # 0.0 # k/uL (0.0-0.8) 05/29/17 09:30 Sodium 134 mmol/L (136-145) L 05/29/17 08:20 Potassium 4.2 mmol/L (3.5-5.1) 05/29/17 08:20 Chloride 92 mmol/L (98-107) L 05/29/17 08:20 Carbon Dioxide 28 mmol/L (22-30) 05/29/17 08:20 BUN 10 mg/dL (7-17) 05/29/17 08:20 Creatinine 0.50 mg/dL (0.52-1.04) L 05/29/17 08:20 Estimated Creat Clear 81 05/29/17 08:20 Est GFR ( Amer) > 60 (60-) 05/29/17 08:20 Est GFR (Non-Af Amer) > 60 (60-) 05/29/17 08:20 Glucose 132 mg/dL (74-106) H 05/29/17 08:20 Calcium 8.8 mg/dL (8.4-10.2) 05/29/17 08:20 Assessment/Plan - Assessment/Plan (1) Weakness Status: Acute Current Visit: Yes Plan: Cont. PT/OT. (2) Esophageal candidiasis Status: Acute Current Visit: Yes Plan: Off diflucan now. Still doing ST. (3) Diastolic dysfunction Status: Acute Current Visit: Yes (4) H/O: pneumonia Status: Acute Current Visit: Yes Plan: O2 weaned off. Change duonebs to prn. (5) Hyponatremia Status: Acute Current Visit: Yes Plan: Resolved. (6) Anorexia Status: Acute Current Visit: Yes Plan: Improved. Stop remeron.
[2017-05-31] MEDS: SODIUM CHLORIDE NASAL SPRAY NS SCH ×2 (17:28→19:37)
[2017-05-31] MEDS: ASPIRIN 81 MG CHEW TAB PO SCH (17:28)
[2017-06-01] MEDS ORDERED: CALCIUM/VIT D 500MG/200IU TABLET ONE (04:21)
[2017-06-01] MEDS: PANTOPRAZOLE SODIUM 40 MG TABLET PO SCH (06:12)
[2017-06-01] MEDS: CALCIUM/VIT D 500MG/200IU TABLET PO SCH (09:44)
[2017-06-01] MEDS: amLODIPine BESYLATE 5 MG TABLET PO SCH (09:44)
[2017-06-01] MEDS: POTASSIUM CHLORIDE 20 MEQ TABLET.ER PO SCH (09:44)
[2017-06-01] MEDS: FUROSEMIDE 20 MG TABLET PO SCH (09:44)
[2017-06-01] MEDS: SENNOSIDES 8.6 MG TABLET PO SCH (09:45)
[2017-06-01] MEDS: SODIUM CHLORIDE NASAL SPRAY NS SCH ×4 (09:45→20:05)
[2017-06-01] MEDS: CARVEDILOL 12.5 MG TABLET PO SCH ×2 (09:45→20:04)
[2017-06-01] MEDS: CHOLECALCIFEROL (VIT D3) 1,000 UNIT TABLET PO SCH (09:46)
[2017-06-01] MEDS: LISINOPRIL 20 MG TABLET PO SCH (09:46)
[2017-06-01] MEDS: POLYETHYLENE GLYCOL 3350 17 GM POWD.PACK PO PRN (10:38)
[2017-06-01] MEDS: ASPIRIN 81 MG CHEW TAB PO SCH (16:41)
[2017-06-02] MEDS: PANTOPRAZOLE SODIUM 40 MG TABLET PO SCH (07:47)
[2017-06-02] MEDS: CARVEDILOL 12.5 MG TABLET PO SCH ×2 (09:49→20:42)
[2017-06-02] MEDS: CALCIUM/VIT D 500MG/200IU TABLET PO SCH (09:49)
[2017-06-02] MEDS: LISINOPRIL 20 MG TABLET PO SCH (09:49)
[2017-06-02] MEDS: amLODIPine BESYLATE 5 MG TABLET PO SCH (09:50)
[2017-06-02] MEDS: SODIUM CHLORIDE NASAL SPRAY NS SCH ×4 (09:52→20:42)
[2017-06-02] MEDS: CHOLECALCIFEROL (VIT D3) 1,000 UNIT TABLET PO SCH (09:55)
[2017-06-02] MEDS: SENNOSIDES 8.6 MG TABLET PO SCH (09:55)
[2017-06-02] MEDS: ASPIRIN 81 MG CHEW TAB PO SCH (17:17)
[2017-06-03] MEDS: PANTOPRAZOLE SODIUM 40 MG TABLET PO SCH (06:35)
[2017-06-03] MEDS: CARVEDILOL 12.5 MG TABLET PO SCH ×2 (08:44→21:24)
[2017-06-03] MEDS: CALCIUM/VIT D 500MG/200IU TABLET PO SCH (08:45)
[2017-06-03] MEDS: LISINOPRIL 20 MG TABLET PO SCH (08:46)
[2017-06-03] MEDS: SODIUM CHLORIDE NASAL SPRAY NS SCH ×4 (08:47→21:25)
[2017-06-03] MEDS: SENNOSIDES 8.6 MG TABLET PO SCH (08:47)
[2017-06-03] MEDS: CHOLECALCIFEROL (VIT D3) 1,000 UNIT TABLET PO SCH (08:51)
[2017-06-03] MEDS: amLODIPine BESYLATE 5 MG TABLET PO SCH (08:51)
[2017-06-03] MEDS: ASPIRIN 81 MG CHEW TAB PO SCH (16:45)
[2017-06-04] MEDS: PANTOPRAZOLE SODIUM 40 MG TABLET PO SCH (06:27)
[2017-06-04] MEDS: amLODIPine BESYLATE 5 MG TABLET PO SCH (09:11)
[2017-06-04] MEDS: CARVEDILOL 12.5 MG TABLET PO SCH ×2 (09:11→20:05)
[2017-06-04] MEDS: CALCIUM/VIT D 500MG/200IU TABLET PO SCH (09:12)
[2017-06-04] MEDS: LISINOPRIL 20 MG TABLET PO SCH (09:12)
[2017-06-04] MEDS: CHOLECALCIFEROL (VIT D3) 1,000 UNIT TABLET PO SCH (09:13)
[2017-06-04] MEDS: SODIUM CHLORIDE NASAL SPRAY NS SCH ×4 (09:13→20:05)
[2017-06-04] MEDS: SENNOSIDES 8.6 MG TABLET PO SCH (09:13)
[2017-06-04] MEDS: ASPIRIN 81 MG CHEW TAB PO SCH (17:51)
[2017-06-05] MEDS: PANTOPRAZOLE SODIUM 40 MG TABLET PO SCH (05:54)
[2017-06-05] MEDS: CALCIUM/VIT D 500MG/200IU TABLET PO SCH (08:54)
[2017-06-05] MEDS: amLODIPine BESYLATE 5 MG TABLET PO SCH (08:54)
[2017-06-05] MEDS: CARVEDILOL 12.5 MG TABLET PO SCH ×2 (08:54→19:22)
[2017-06-05] MEDS: SODIUM CHLORIDE NASAL SPRAY NS SCH ×4 (08:55→19:22)
[2017-06-05] MEDS: CHOLECALCIFEROL (VIT D3) 1,000 UNIT TABLET PO SCH (08:55)
[2017-06-05] MEDS: LISINOPRIL 20 MG TABLET PO SCH (08:55)
[2017-06-05] MEDS: SENNOSIDES 8.6 MG TABLET PO SCH (08:55)
[2017-06-05] MEDS: ASPIRIN 81 MG CHEW TAB PO SCH (17:24)
[2017-06-06] MEDS: PANTOPRAZOLE SODIUM 40 MG TABLET PO SCH (05:50)
[2017-06-06] MEDS ORDERED: SIMETHICONE 80 MG TAB.CHEW PO PRN (07:19)
[2017-06-06] MEDS: amLODIPine BESYLATE 5 MG TABLET PO SCH (08:46)
[2017-06-06] MEDS: CARVEDILOL 12.5 MG TABLET PO SCH ×2 (08:46→19:25)
[2017-06-06] MEDS: CALCIUM/VIT D 500MG/200IU TABLET PO SCH (08:47)
[2017-06-06] MEDS: SENNOSIDES 8.6 MG TABLET PO SCH (08:48)
[2017-06-06] MEDS: LISINOPRIL 20 MG TABLET PO SCH (08:48)
[2017-06-06] MEDS: CHOLECALCIFEROL (VIT D3) 1,000 UNIT TABLET PO SCH (08:48)
[2017-06-06] MEDS: SODIUM CHLORIDE NASAL SPRAY NS SCH ×4 (08:48→19:31)
[2017-06-06] MEDS: ASPIRIN 81 MG CHEW TAB PO SCH (17:48)
[2017-06-07] MEDS ORDERED: amLODIPine BESYLATE 5 MG TABLET ONE (05:18)
[2017-06-07] MEDS: PANTOPRAZOLE SODIUM 40 MG TABLET PO SCH (06:10)
[2017-06-07] MEDS: LISINOPRIL 20 MG TABLET PO SCH (10:02)
[2017-06-07] MEDS: amLODIPine BESYLATE 5 MG TABLET PO SCH (10:02)
[2017-06-07] MEDS: CALCIUM/VIT D 500MG/200IU TABLET PO SCH (10:03)
[2017-06-07] MEDS: SODIUM CHLORIDE NASAL SPRAY NS SCH ×4 (10:03→20:27)
[2017-06-07] MEDS: CARVEDILOL 12.5 MG TABLET PO SCH ×2 (10:03→20:27)
[2017-06-07] MEDS: CHOLECALCIFEROL (VIT D3) 1,000 UNIT TABLET PO SCH (10:04)
[2017-06-07] MEDS: SENNOSIDES 8.6 MG TABLET PO SCH (10:04)
[2017-06-07] MEDS: ASPIRIN 81 MG CHEW TAB PO SCH (16:49)
[2017-06-08] MEDS ORDERED: amLODIPine BESYLATE 5 MG TABLET ONE (05:31)
[2017-06-08] MEDS: PANTOPRAZOLE SODIUM 40 MG TABLET PO SCH (06:02)
--- NOTE | 2017-06-08 08:42 | Discharge Summary ---
Discharge Summary - Discharge Sumary History of Present Illness: Patient here for SNF after being hospitalized at [facility] for pneumonia. She began her illness with influenza in 04/02 and never really got better. She was treated with zithromax and rocephin at [facility] and transferred to [facility]. She has completed her antibiotics. She developed hypoxic respiratory failure most likely due to fluid overload and pulmonary edema most likely due to fluid overload with her illness. CT of chest ruled out PE. She was on lovenox during her stay. Due to swallowing difficulty, she had an EGD - apparently had polyps removed, stricture stretched and diagnosed with esophageal candidiasis. She is finishing diflucan now. She was placed on PPI and H2 vinny. Had been on marinnol and remeron to stimulate appetite. Feels that is better. Had some hyponatremia thought to be due to hypovolemia. Today it was 136. Echo done there showed EF 60% with some diastolic dysfunction. Aortic valve looked fine ( h/o "stenosis"). Feels weak but feeling better. Normally is "healthy" and lives at home with . A friend - Laurie - helps them a lot. Condition at Discharge: Stable Home Medications: Ambulatory Orders Medication Instructions Recorded Aspirin [Nelida] 81 mg PO QD 05/20/12 Carvedilol [Coreg] 25 mg NS BID 05/20/12 Lisinopril [Prinivil] 20 mg PO DAILY 05/20/12 amLODIPine BESYLATE [Norvasc] 2.5 mg PO DAILY 05/20/12 Cetirizine HCl [Zyrtec] 10 mg PO DAILY 05/26/17 Cholecalciferol [Vitamin D-3] 1,000 units PO DAILY 05/26/17 Pantoprazole Sodium [Protonix] 40 mg PO 0700 #30 tablet. 06/06/17 Polyethylene Glycol 3350 [Miralax] 17 gm PO 1100 #30 06/06/17 Consultations this Visit: None Procedures this Visit: None Allergies/Adverse Reactions: Allergies Allergy/AdvReac Type Severity Reaction Status Date / Time erythromycin base Allergy Verified 05/05/17 08:34 [Erythromycin Base] heparin Allergy Verified 05/05/17 08:34 Penicillins Allergy Verified 05/05/17 08:34 Sulfa (Sulfonamide Allergy Verified 05/05/17 08:34 Antibiotics) [Sulfa(Sulfonamide Antibiotics)] Discharge Summary: Patient admitted to SNF for PT/OT and ST after being hospitalized with pneumonia. ST was asked to see her as she had some swallowing issues at [facility] and noted to have esophageal candidiasis on EGD. She completed her diflucan treatment while on SNF. She also finished 7 days of lasix and potassium on SNF from some exacerbation of diastolic dysfunction due to fluid overload at [facility]. Did well off the meds - no concerns with recurrent edema. We were able to wean off oxygen and duonebs from her pneumonia. Her appetite greatly improved so remeron was stopped. Patient discharged back to [facility] in good condition. Hospital Course: Discharge Dx: Esophageal Candidiasis. Pneumonia with hypoxia and anorexia. Diastolic Dysfunction. CAD. Disposition - [facility]
[2017-06-08] MEDS: CALCIUM/VIT D 500MG/200IU TABLET PO SCH (08:56)
[2017-06-08] MEDS: CARVEDILOL 12.5 MG TABLET PO SCH (08:56)
[2017-06-08] MEDS: LISINOPRIL 20 MG TABLET PO SCH (08:57)
[2017-06-08] MEDS: amLODIPine BESYLATE 5 MG TABLET PO SCH (08:57)
[2017-06-08] MEDS: SENNOSIDES 8.6 MG TABLET PO SCH (08:58)
[2017-06-08] MEDS: CHOLECALCIFEROL (VIT D3) 1,000 UNIT TABLET PO SCH (08:58)
[2017-06-08] MEDS: SODIUM CHLORIDE NASAL SPRAY NS SCH ×2 (08:58→14:11)
[2017-06-08 09:07] VITALS: BP 126/73
== END 2017-06-08 14:30 | disposition home health service (06) | DRG 948 ==
LOC: SOUTH 11:43
PROVIDERS: ADMIT Family Medicine; ATTEND Family Medicine
DX: R53.1 Weakness (principal); E87.1 Hypo-osmolality and hyponatremia; I50.30 Unspecified diastolic (congestive) heart failure; R09.02 Hypoxemia; Z87.01 Personal history of pneumonia (recurrent); R63.0 Anorexia; I25.10 Atherosclerotic heart disease of native coronary artery without angina pectoris; I10 Essential (primary) hypertension; E78.5 Hyperlipidemia, unspecified
CPT/HCPCS: 36415; 80048; 85025; 92610; 94640; 94760; 97110; 97112; 97116; 97161; 97165; 97530; 97535; A9270

== ENCOUNTER 2017-12-23 04:22 | Emergency (ER) | payer OTHER ==
[2017-12-23] MEDS ORDERED: ONDANSETRON HCL/PF 4 MG/ 2ML VIAL ONE (05:01)
[2017-12-23] MEDS ORDERED: ONDANSETRON HCL/PF 4 MG/ 2ML VIAL IVP ONE (05:08)
--- NOTE | 2017-12-23 05:14 | ED Physician Documentation ---
General Adult - HISTORIAN Historian: patient, spouse, friend - HPI Stated Complaint: Dizziness with nausea and vomiting Chief Complaint: General Adult Additional Information: On way to BR at 0200, became dizzy and grabbed door frame. After she went to the BR, became nauseated and was retching. Vomited clear fluid then colored with perhaps some flecks of blood. No LOC, CP, heart pounding, fever, diaphoresis. Nausea is now intermittent; dizziness resolved. concerned she may be getting flu. Says she has not had episodes like this before. Tells RN she has had dizzy episodes in the past. Took a 325 mg ASA at time of events in case it was her heart. No other treatment attempted. No other modifying factors or associated signs. - ROS CONST: no problems - PAST HX Past History: AMI, other (pneumonia; breast cancer) Surgeries/Procedures: other (cardiac stent x2; right mastectomy) - VITAL SIGNS Vital Signs: Vital Signs Temp Pulse Resp BP Pulse Ox 98.2 F 79 18 166/79 98 12/23/17 04:25 12/23/17 04:25 12/23/17 04:25 12/23/17 04:25 12/23/17 04:25 <GLORIA HERNANDEZ - Last Filed: 12/23/17 06:40> - SOCIAL HX Smoking History: non-smoker Alcohol Use: none Drug Use: none - FAMILY HX Family History: No - VITAL SIGNS Vital Signs: Vital Signs Temp Pulse Resp BP Pulse Ox 98.2 F 72 18 166/79 98 12/23/17 04:25 12/23/17 08:00 12/23/17 04:25 12/23/17 04:25 12/23/17 04:25 <Jeanne Anderson - Last Filed: 12/23/17 15:07> - PAST HX Allergies/Adverse Reactions: Allergies Allergy/AdvReac Type Severity Reaction Status Date / Time erythromycin base Allergy Verified 12/23/17 04:41 [Erythromycin Base] heparin Allergy Verified 12/23/17 04:41 Penicillins Allergy Verified 12/23/17 04:41 Sulfa (Sulfonamide Allergy Verified 12/23/17 04:41 Antibiotics) [Sulfa(Sulfonamide Antibiotics)] Home Medications: Ambulatory Orders Medication Instructions Recorded Aspirin [Nelida] 81 mg PO QD 02/03/13 Carvedilol [Coreg] 25 mg PO BID 05/20/12 Lisinopril [Prinivil] 20 mg PO DAILY 05/20/12 Cholecalciferol [Vitamin D-3] 1,000 units PO DAILY 05/26/17 Polyethylene Glycol 3350 [Miralax] 17 gm PO 1100 #30 06/06/17 Levothyroxine Sodium 75 mcg PO DAILY 12/23/17 Multivitamin [Daily Multiple 1 each PO DAILY 12/23/17 Vitamin] Ranitidine HCl 150 mg PO DAILY 12/23/17 Progress - Progress Progress: EKG: sinus rhythm, frequent PVC's, no acute ischemic changes Report Submission Date: Dec 23, 2017 5:38:04 AM CDT Patient Study Name: BILL GONZALEZ Date: Dec 23, 2017 5:16:59 AM CDT Modality Type: DX Gender: F Description: CHEST : 30 Institution: [facility] Physician: GLORIA HERNANDEZ Chest, AP portable History: Dizziness, vomiting Findings: The right hemidiaphragm is elevated. Surgical clips are noted in the right axilla. There is no infiltrate, effusion or pneumothorax. Heart size and pulmonary vascularity are normal. There is calcification in the thoracic aorta. Impression: Elevated right hemidiaphragm. Atherosclerosis. No active pulmonary disease. Electronically signed on Dec 23, 2017 5:38:04 AM CDT by: Ulises Gastelum Report Submission Date: Dec 23, 2017 6:02:33 AM CDT Patient Study Name: BILL GONZALEZ Date: Dec 23, 2017 5:45:50 AM CDT Modality Type: CT Gender: F Description: CT BRAIN W/O CONTRAST : 30 Institution: [facility] Physician: GLORIA HERNANDEZ CT head without contrast History: Dizziness Technique: Images through the brain were obtained without contrast. Findings: No mass, midline shift, obstructive hydrocephalus or acute intracranial hemorrhage is present. 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 The ventricles and cortical sulci are slightly enlarged, consistent with age. No extraaxial fluid collection is identified. Impression: No acute intracranial process. Chronic in infarcts. Electronically signed on Dec 23, 2017 6:02:33 AM CDT by: Ulises Argueta 0615, rico, says she feels better. No nystagmus dizziness, nausea, with Deandra maneuver. No lateralization. Await 2nd [id number], Labs thus far reassuring. Await 2nd Trop I. Care to Jeanne Anderson. <GLORIA HERNANDEZ MARYANN - Last Filed: 12/23/17 06:40> ED Results Lab/Radiology - Orders Orders: ED Orders Category Date Time Status Continuous EKG monitoring Q1H Care 12/23/17 04:[address] IV Lock 1T Care 12/23/17 04:53 Ordered CBC/PLATELET/DIFF Routine Lab 12/23/17 Ordered CMP Routine Lab 12/23/17 Ordered INFLUENZA A&B Stat Lab 12/23/17 Uncollected TROPONIN I (cTnI) Stat Lab 12/23/17 Ordered URINALYSIS Routine Lab 12/23/17 Ordered NORMAL SALINE @ 100 MLS/HR(1000ml) Med 12/23/17 05:30 Ordered 0.9 % Sodium Chloride [Normal Saline] 1,000 ml IV Q10H Ondansetron HCl/Pf [Zofran 4 mg/2 ml] Med 12/23/17 05:01 Discontinued 4 mg .ROUTE .STK-MED ONE Ondansetron HCl/Pf [Zofran 4 mg/2 ml] Med 12/23/17 05:08 Once 4 mg IVP NOW ONE EKG WITH COMPARISON Stat Ther 12/23/17 Ordered <GLORIA HERNANDEZ - Last Filed: 12/23/17 06:40> - Lab Results Lab Results: Lab Results 12/23/17 12/23/17 12/23/17 07:20 05:40 05:16 WBC RBC Hgb Hct MCV MCH MCHC RDW Plt Count Neut % (Auto) Lymph % (Auto) [place] % (Auto) Eos % (Auto) Baso % (Auto) Neut # (Auto) Lymph # (Auto) [place] # (Auto) Eos # (Auto) Baso # (Auto) Reactive Lymphs % Reactive Lymphs # Sodium Potassium Chloride Carbon Dioxide BUN Creatinine Estimated Creat Clear Est GFR ( Amer) Est GFR (Non-Af Amer) Glucose Calcium Total Bilirubin AST ALT Alkaline Phosphatase Troponin I < 0.03 ng/mL L ng/mL < 0.03 ng/mL L ng/mL (0.03-0.06) (0.03-0.06) Total Protein Albumin Urine Color Yellow (YELLOW) Urine Appearance Clear (CLEAR) Urine pH 7.5 (5.0 - 8.0) Ur Specific [place] 1.025 (1.010-1.030) Urine Protein Negative mg/dL mg/dL (NEGATIVE) Urine Ketones Negative mg/dL mg/dL (NEGATIVE) Urine Occult Blood Negative (NEGATIVE) Urine Nitrite Negative (NEGATIVE) Urine Bilirubin Negative (NEGATIVE) Urine Urobilinogen 0.2 Eu Eu (0.2-1.0) Ur Leukocyte Esterase Negative (NEGATIVE) Urine Glucose Negative mg/dL mg/dL (NEGATIVE) Influenza A (Rapid) Negative (NEGATIVE) Influenza B (Rapid) Negative (NEGATIVE) 12/23/17 12/23/17 05:00 05:00 WBC 4.40 K/ul K/ul (4.00-12.00) RBC 4.08 M/ul M/ul (3.90-5.20) Hgb 12.7 g/dL g/dL (12.0-16.0) Hct 36.3 % % (34.5-46.5) MCV 88.9 fl fl (80.0-100.0) MCH 31.1 pg pg (28.0-34.0) MCHC 35.0 g/dL g/dL (30.0-36.0) RDW 13.0 % % (11.3-14.3) Plt Count 138 K/mm3 K/mm3 (130-400) Neut % (Auto) 57.5 % % (39.0-79.0) Lymph % (Auto) 30.1 % % (16.0-50.0) [place] % (Auto) 9.1 % % (0.0-11.0) Eos % (Auto) 1.7 % % (0.0-6.8) Baso % (Auto) 0.2 (0.0-1.5) Neut # (Auto) 2.5 # k/uL # k/uL (1.4-7.7) Lymph # (Auto) 1.3 # k/uL # k/uL (0.6-4.0) [place] # (Auto) 0.4 # k/uL # k/uL (0.0-0.9) Eos # (Auto) 0.1 # k/uL # k/uL (0.0-0.6) Baso # (Auto) 0.0 # k/uL # k/uL (0.0-0.5) Reactive Lymphs % 1.4 % % (0.0-5.0) Reactive Lymphs # 0.1 # k/uL # k/uL (0.0-0.8) Sodium 132 mmol/L L mmol/L (136-145) Potassium 3.3 mmol/L L mmol/L (3.5-5.1) Chloride 95 mmol/L L mmol/L (98-107) Carbon Dioxide 28 mmol/L mmol/L (22-30) BUN 11 mg/dL mg/dL (7-17) Creatinine 0.50 mg/dL L mg/dL (0.52-1.04) Estimated Creat Clear 76 Est GFR ( Amer) > 60 (60 - ) Est GFR (Non-Af Amer) > 60 (60 - ) Glucose 137 mg/dL H mg/dL (74-106) Calcium 8.6 mg/dL mg/dL (8.4-10.2) Total Bilirubin 0.6 mg/dL mg/dL (0.2-1.3) AST 18 U/L U/L (15-46) ALT 28 U/L U/L (13-69) Alkaline Phosphatase 73 U/L U/L (38-126) Troponin I Total Protein 7.0 g/dL g/dL (6.3-8.2) Albumin 3.9 g/dL g/dL (3.5-5.0) Urine Color Urine Appearance Urine pH Ur Specific [place] Urine Protein Urine Ketones Urine Occult Blood Urine Nitrite Urine Bilirubin Urine Urobilinogen Ur Leukocyte Esterase Urine Glucose Influenza A (Rapid) Influenza B (Rapid) - Orders Orders: ED Orders Category Date Time Status Continuous EKG monitoring Q1H Care 12/23/17 04:[address] IV Lock 1T Care 12/23/17 04:53 Active CHEST 1VIEW [RAD] Stat Exams 12/23/[address] BRAIN W/O CONTRAST Stat Exams 12/23/17 Completed CBC/PLATELET/DIFF Routine Lab 12/23/17 05:00 Completed CMP Routine Lab 12/23/17 05:00 Completed INFLUENZA A&B Routine Lab 12/23/17 05:40 Completed TROPONIN I (cTnI) Stat Lab 12/23/17 05:16 Completed TROPONIN I (cTnI) Stat Lab 12/23/17 07:20 Completed UA MACRO DIP ONLY Routine Lab 12/23/17 05:40 Completed 0.9 % Sodium Chloride [Normal Saline] 1,000 ml Med 12/23/17 05:30 Ordered IV Q10H Ondansetron HCl/Pf [Zofran 4 mg/2 ml] Med 12/23/17 05:01 Discontinued 4 mg .ROUTE .STK-MED ONE Ondansetron HCl/Pf [Zofran 4 mg/2 ml] Med 12/23/17 05:08 Discontinued 4 mg IVP NOW ONE EKG WITH COMPARISON Stat Ther 12/23/17 Ordered <Jeanne Anderson - Last Filed: 12/23/17 15:07> General Adult Physical Exam - PHYSICAL EXAM GENERAL APPEARANCE: mild distress EENT: eye inspection normal, ENT inspection normal, pharynx normal, FAYE, no nystagmus, TM's nml (R. L a bit dull) NECK: normal inspection, supple. No: lymphadenopathy RESPIRATORY: breath sounds normal CVS: reg rate & rhythm, heart sounds normal, murmur (4/6 AMAYA) ABDOMEN: soft, normal bowel sounds, non-tender RECTAL: deferred BACK: normal inspection, no CVA tenderness, other (no vertebral tenderness) SKIN: warm/dry, normal color EXTREMITIES: non-tender, no evidence of injury, no edema NEURO: CN's nml as tested, motor nml, sensation nml, other (she says she saw Dr. Kc in August, says it was last week) <GLORIA HERNANDEZ - Last Filed: 12/23/17 06:40> Discharge <GLORIA HERNANDEZ - Last Filed: 12/23/17 06:40> Decision to Admit: NO Date of Decison to Admit: 12/23/17 Decision Time: 08:15 <Jeanne Anderson - Last Filed: 12/23/17 15:07> Clincal Impression: Light-headed feeling Referrals: Adonay Kc MD [Primary Care Provider] - 2 Days Additional Instructions: 1. Increase fluids 2. Continue meds 3. Change position slowly 4. Follow up with PCP 2-4 days 5. Return to ER for any concerns Condition: Stable Disposition: 01 HOME, SELF-CARE
[2017-12-23] MEDS ORDERED: 0.9 % SODIUM CHLORIDE 1,000 ML IV ONE (05:15)
[2017-12-23 05:16] LABS: BASOPHILS % 0.2 (0.0-1.5); EOSINOPHILS % 1.7 % (0.0-6.8); MEAN CORPUSCULAR HEMOGLOBIN 31.1 pg (28.0-34.0); MEAN CORPUSCULAR VOLUME 88.9 fl (80.0-100.0); MONOCYTES % 9.1 % (0.0-11.0); NEUTROPHILS # 2.5 # k/uL (1.4-7.7)
[2017-12-23] MEDS ORDERED: 0.9 % SODIUM CHLORIDE 1,000 ML IV SCH (05:30)
[2017-12-23 05:33] LABS: eGFR (Non-African) > 60
--- NOTE | 2017-12-23 05:40 | Diagnostic Imaging Report ---
GLORIA HERNANDEZ [facility] [address] [facility] [address] [address] Report Submission Date: Dec 23, 2017 5:38:04 AM CDT Patient Study Name: BILL GONZALEZ Date: Dec 23, 2017 5:16:59 AM CDT Modality Type: DX Gender: F Description: CHEST : 30 Institution: [facility] Physician: GLORIA HERNANDEZ Chest, AP portable History: Dizziness, vomiting Findings: The right hemidiaphragm is elevated. Surgical clips are noted in the right axilla. There is no infiltrate, effusion or pneumothorax. Heart size and pulmonary vascularity are normal. There is calcification in the thoracic aorta. Impression: Elevated right hemidiaphragm. Atherosclerosis. No active pulmonary disease. Electronically signed on Dec 23, 2017 5:38:04 AM CDT by: Ulises GRIFFITH
--- NOTE | 2017-12-23 06:06 | Diagnostic Imaging Report ---
GLORIA HERNANDEZ [facility] [address] [facility] [address] [place] [address]. [id number] Report Submission Date: Dec 23, 2017 6:02:33 AM CDT Patient Study Name: BILL GONZALEZ Date: Dec 23, 2017 5:45:50 AM CDT Modality Type: CT Gender: F Description: CT BRAIN W/O CONTRAST : 30 Institution: [facility] Physician: GLORIA HERNANDEZ CT head without contrast History: Dizziness Technique: Images through the brain were obtained without contrast. Findings: No mass, midline shift, obstructive hydrocephalus or acute intracranial hemorrhage is present. 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 The ventricles and cortical sulci are slightly enlarged, consistent with age. No extraaxial fluid collection is identified. Impression: No acute intracranial process. Chronic in infarcts. Electronically signed on Dec 23, 2017 6:02:33 AM CDT by: Ulises GRIFFITH
[2017-12-23 06:41] LABS: APPEARANCE,URINE CLEAR (CLEAR); COLOR,URINE YELLOW (YELLOW); OCCULT BLOOD,URINE NEGATIVE (NEGATIVE); PH URINE 7.5 (5.0 - 8.0); UROBILINOGEN URINE 0.2 Eu (0.2-1.0)
[2017-12-23 09:03] VITALS: BP 171/87
== END 2017-12-23 08:52 | disposition home or self-care (01) ==
LOC: ED 04:22
DX: R11.2 Nausea with vomiting, unspecified (principal); R42 Dizziness and giddiness
CPT/HCPCS: 70450; 71045; 80053; 81002; 84484; 85025; 87400; 93005; J2405; J7030; 96365; 96375; S1016

== ENCOUNTER 2018-01-05 22:30 | Emergency (ER) | payer OTHER ==
--- NOTE | 2018-01-05 22:45 | ED Physician Documentation ---
General Adult - HISTORIAN Historian: patient - HPI Stated Complaint: vertigo Chief Complaint: General Adult Onset: hours Timing: better Severity: mild Further Comments: yes (Pt is an 87 yo female who was dx'd with vertigo at [facility] earlier this month. Pt was instructed in Eply maneuver's and was rx'd meclizine. Pt filled the prescription but did not take any pills. She was doing better. Tonight as she was sitting, sx recurred and pt became dizzy and vomited lightly x 1. No cp, sob, diaphoresis.) - ROS CONST: other (dizzy) EYES/ENT: none CVS/RESP: none GI/: nausea MS/SKIN/LYMPH: none NEURO/PSYCH: other (vertigo) - PAST HX Past History: other ([place] with stent 2006, HTN, HLD, GERD, Thyroid dz) Surgeries/Procedures: other (Tonsils & Adenoids, appendectomy) Allergies/Adverse Reactions: Allergies Allergy/AdvReac Type Severity Reaction Status Date / Time erythromycin base Allergy Verified 01/05/18 23:09 [Erythromycin Base] heparin Allergy Verified 01/05/18 23:09 Penicillins Allergy Verified 01/05/18 23:09 Sulfa (Sulfonamide Allergy Verified 01/05/18 23:09 Antibiotics) [Sulfa(Sulfonamide Antibiotics)] Home Medications: Ambulatory Orders Medication Instructions Recorded Aspirin [Nelida] 81 mg PO QD 05/20/12 Carvedilol [Coreg] 25 mg PO BID 05/20/12 Lisinopril [Prinivil] 20 mg PO DAILY 05/20/12 Cholecalciferol [Vitamin D-3] 1,000 units PO DAILY 05/26/17 Levothyroxine Sodium 75 mcg PO DAILY 12/23/17 Multivitamin [Daily Multiple 1 each PO DAILY 12/23/17 Vitamin] Ranitidine HCl 150 mg PO DAILY 12/23/17 - SOCIAL HX Smoking History: non-smoker - FAMILY HX Family History: No - VITAL SIGNS Vital Signs: Vital Signs Temp Pulse Resp BP Pulse Ox 171/87 12/23/17 09:01 - REVIEWED ASSESSMENTS Nursing Assessment Reviewed: Yes Vitals Reviewed: Yes Progress - Progress Progress: meclizine 25 mg po improved Continue meclizine as previously prescribed. General Adult Physical Exam - PHYSICAL EXAM GENERAL APPEARANCE: mild distress EENT: eye inspection normal, pharynx normal NECK: normal inspection, supple RESPIRATORY: no resp distress, chest non-tender, breath sounds normal CVS: reg rate & rhythm, heart sounds normal ABDOMEN: soft, no organomegaly, normal bowel sounds BACK: normal inspection, no CVA tenderness SKIN: warm/dry, normal color, cyanosis EXTREMITIES: non-tender, normal range of motion, no evidence of injury NEURO: oriented X3, CN's nml as tested, motor nml, sensation nml, other (Shyam Hallpike indeterminate) Discharge Clincal Impression: Vertigo Referrals: Adonay Kc MD [Primary Care Provider] - Condition: Stable Disposition: 01 HOME, SELF-CARE Decision to Admit: NO Decision Time: 02:10
[2018-01-06 00:03] LABS: eGFR (Non-African) > 60
[2018-01-06] MEDS ORDERED: MECLIZINE HCL 25 MG TABLET PO ONE (00:28)
[2018-01-06 01:51] LABS: BASO % 0.2 % (0.0-1.5); EOS % 1.1 % (0.0-6.8); LYMPH ABS # 1.64 thou/uL (0.60-4.00); MCH. 31.4 pg (28.0-34.0); MCV 88.9 fL (80.0-100.0); MONOCYTE % 8.2 % (0.0-11.0); MONOCYTE ABS # 0.44 thou/uL (0.00-0.90); PLATELET COUNT 186 thou/uL (130-400)
[2018-01-06 02:23] VITALS: BP 152/90
[2018-01-06 06:29] LABS: APPEARANCE,URINE NOT DOCUMENTED (CLEAR); COLOR,URINE NOT DOCUMENTED (YELLOW); OCCULT BLOOD,URINE NEGATIVE (NEGATIVE); PH URINE 8.5 (5.0 - 8.0); UROBILINOGEN URINE 0.2 Eu (0.2-1.0)
== END 2018-01-06 02:15 | disposition home or self-care (01) ==
LOC: ED 22:30
DX: R42 Dizziness and giddiness (principal); I25.2 Old myocardial infarction
CPT/HCPCS: 80053; 81002; 85025

== ENCOUNTER → 2018-09-23 10:00 | Emergency (ER) | payer OTHER ==
[2018-10-07 17:41] LABS: BASOPHILS % 0.3 % (0.0-1.5); NEUTROPHILS # 4.2 # k/uL (1.4-7.7); eGFR (Non-African) > 60
[2018-10-07 17:46] LABS: APPEARANCE,URINE CLEAR (CLEAR); COLOR,URINE YELLOW (YELLOW); OCCULT BLOOD,URINE TRACE-LYSED (NEGATIVE); UROBILINOGEN URINE 0.2 Eu (0.2-1.0)
[2018-10-08 12:33] LABS: A1C 5.5 % (-5.7)
--- NOTE | 2018-10-12 12:10 | Diagnostic Imaging Report ---
MARICEL BAPTISTE (RV SERVICER) - ER [facility] [address] [facility] [address] Report Submission Date: Sep 23, 2018 9:43:07 AM CDT Patient Study Name: BILL GONZALEZ Date: Sep 23, 2018 9:14:36 AM CDT Modality Type: DX Gender: F Description: ABD COMPLETE : 30 Institution: [facility] Physician: MARICEL BAPTISTE (RV SERVICER) - ER AP and erect views of the abdomen Clinical history: Abdominal pain There is nonspecific bowel gas pattern. No dilated small large bowel loops. No visible calcific density overlying the urinary tract gallbladder of the appendix. No free air Impression: Normal obstructive series Electronically signed on Sep 23, 2018 9:43:07 AM CDT by: Javier GRIFFITH
== END | disposition home or self-care (01) ==
LOC: ED 10:00
DX: R10.9 Unspecified abdominal pain (principal); R14.3 Flatulence
CPT/HCPCS: 36415; 74019; 80053; 81002; 83036; 85025; 99281; 99282; 99283

== ENCOUNTER 2019-02-09 09:46 | Emergency (ER) | payer OTHER ==
[2019-02-09 09:58] VITALS: BP 149/70
--- NOTE | 2019-02-09 10:23 | ED Physician Documentation ---
General Adult - HISTORIAN Historian: patient - HPI Stated Complaint: sinus drainage Chief Complaint: General Adult Onset: days ago (10) Timing: still present Severity: moderate Further Comments: yes (Pt is an 88 yo female with sinus pain and drainage x 10 days. Pt was seen by her pcp, but was not rx'd abx. She was told if condition persisted or worsened to return for abx. Pt has not had ear pain or fever or sore throat.) - ROS CONST: no problems EYES/ENT: other (sinus pain, drainage) CVS/RESP: none GI/: none MS/SKIN/LYMPH: none - PAST HX Past History: other (cancer) Allergies/Adverse Reactions: Allergies Allergy/AdvReac Type Severity Reaction Status Date / Time erythromycin base Allergy Verified 02/09/19 10:03 [Erythromycin Base] heparin Allergy Verified 02/09/19 10:03 Penicillins Allergy Verified 02/09/19 10:03 Sulfa (Sulfonamide Allergy Verified 02/09/19 10:03 Antibiotics) [Sulfa(Sulfonamide Antibiotics)] Home Medications: Ambulatory Orders Medication Instructions Recorded Aspirin [Nelida] 81 mg PO QD 05/20/12 Carvedilol [Coreg] 25 mg PO BID 05/20/12 Lisinopril [Prinivil] 20 mg PO DAILY 05/20/12 Cholecalciferol [Vitamin D-3] 1,000 units PO DAILY 05/26/17 Levothyroxine Sodium 75 mcg PO DAILY 12/23/17 Multivitamin [Daily Multiple 1 each PO DAILY 12/23/17 Vitamin] Ranitidine HCl 150 mg PO DAILY 12/23/17 LevoFLOXacin [Levaquin] 500 mg PO DAILY #10 tablet 02/09/19 - SOCIAL HX Smoking History: non-smoker - FAMILY HX Family History: No - VITAL SIGNS Vital Signs: Vital Signs Temp Pulse Resp BP Pulse Ox 98.4 F 69 19 149/70 98 02/09/19 09:56 02/09/19 09:56 02/09/19 09:56 02/09/19 09:56 02/09/19 09:56 - REVIEWED ASSESSMENTS Nursing Assessment Reviewed: Yes Vitals Reviewed: Yes Progress - Progress Progress: Rx Levaquin 500 mg. Take one by mouth once daily for 10 days. Nasal Washes, 1 or 2 times daily as tolerated. General Adult Physical Exam - PHYSICAL EXAM GENERAL APPEARANCE: mild distress EENT: pharynx normal, TM's nml, other (maxillary sinus tenderness) NECK: normal inspection, supple RESPIRATORY: no resp distress, chest non-tender, breath sounds normal CVS: reg rate & rhythm, heart sounds normal BACK: normal inspection SKIN: warm/dry, normal color EXTREMITIES: non-tender, normal range of motion, no evidence of injury NEURO: oriented X3, motor nml, sensation nml Discharge Clincal Impression: sinusitis Sinusitis Qualifiers: Sinusitis location: maxillary Chronicity: acute Recurrence: non-recurrent Qualified Code(s): J01.00 - Acute maxillary sinusitis, unspecified Prescriptions: LevoFLOXacin [Levaquin] 500 mg PO DAILY #10 tablet Referrals: Adonay Kc MD [Primary Care Provider] - Condition: Stable Disposition: 01 HOME, SELF-CARE Decision to Admit: NO Decision Time: 10:27
== END 2019-02-09 10:46 | disposition home or self-care (01) ==
LOC: ED 09:46
DX: J01.00 Acute maxillary sinusitis, unspecified (principal)
CPT/HCPCS: 99281; 99282